=== PATIENT | male | born 1945 | race Caucasian/White ===

== ENCOUNTER → 2017-04-14 | Outpatient (CLI) | payer MEDICARE, OTHER ==
[~2017-04-14] MED LIST: APIX2.5T PO; IOHEXOL 240 MG/ML 50ML VIAL. PO ONE; IOHEXOL 300 MG/ML 100ML VIAL. IV ONE; LISI2.5T PO
--- NOTE | 2017-04-14 11:30 | KCIC ---
Examination: CT pelvis with IV contrast HISTORY: History of left groin pain for years, history of testicular surgery COMPARISON: 03/25/2016 Technique : Axial CT images of the pelvis performed with oral and IV contrast. Coronal and sagittal reformats were performed Exposure: One or more of the following individualized dose reduction techniques were utilized for this examination: 1. Automated exposure control 2. Adjustment of the mA and/or kV according to patient size 3. Use of iterative reconstruction technique FINDINGS: Few sigmoid colon diverticulosis identified. Urinary bladder is mildly distended and mildly enlarged prostate gland. There is stranding of fat identified in the left lower quadrant abdomen extending into the pelvis similar to prior exam could be prior surgical changes or fat infarct. Small fat-containing right inguinal hernia. Moderate degenerative changes lower lumbar spine. IMPRESSION: 1. Stranding of fat identified in the left lower quadrant of the abdomen similar to prior exam likely fat infarct or prior surgical change. 2. Small fat-containing right inguinal hernia. 3. Mild enlarged prostate gland. Electronically signed by: Nigel Norman MD (04/14/2017 11:27 AM)
== END | disposition home or self-care (01) ==
LOC: KCIC CT 09:09
PROVIDERS: ATTEND Internal Medicine
DX: K40.90 Unilateral inguinal hernia, without obstruction or gangrene, not specified as recurrent (principal); N40.0 Benign prostatic hyperplasia without lower urinary tract symptoms; I10 Essential (primary) hypertension
CPT/HCPCS: 72193; Q9966; Q9967

== ENCOUNTER → 2018-07-02 | Outpatient (CLI) | payer MEDICARE, OTHER ==
[~2018-07-02] MED LIST changes: +GADOBUTROL 10 MMOL/10 ML VIAL IV ONE; -IOHEXOL 240 MG/ML 50ML VIAL. PO ONE; -IOHEXOL 300 MG/ML 100ML VIAL. IV ONE
--- NOTE | 2018-07-02 09:49 | KCIC ---
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 Contrast information: 10 cc Gadavist COMPARISON: None available. FINDINGS: There is grade 1 retrolisthesis of L4 on L5. Rudimentary disc is identified at S1-S2. There is moderate disc height loss at L4-L5 with Modic type II endplate degenerative changes. There is endplate remodeling at this level. There is disc desiccation with disc height loss at L1-L2, L2-L3 and L3-L4. Annular fissures are identified at L3-L4 and L4-L5. Conus medullaris terminates at L1. Distal spinal cord signal intensity is normal in all sequences. The left L2 nerve appears to enhance in the cauda equina. There is no fusiform thickening. Simple appearing cysts are identified in the posterior aspect of the right kidney measuring up to 4.7 cm. Abdominal aorta is normal in caliber as visualized. Visualized portions of the sacrum appear intact. L2-L3: There is a circumferential disc bulge with a left far lateral disc protrusion. There is moderate left and mild right facet arthropathy. There is mild to moderate left and mild right neuroforaminal stenosis. There is mild spinal canal stenosis. L3-L4: There is a circumferential disc bulge with central disc protrusion. There is moderate facet arthropathy. There is moderate bilateral neuroforaminal stenosis. There is mild spinal canal stenosis. L4-L5: There is a circumferential disc bulge with central disc protrusion. There is moderate facet arthropathy ligamentum flavum infolding. There is and mild to moderate bilateral neuroforaminal stenosis. No significant spinal canal stenosis. L5-S1: There is a left central disc extrusion. There is a circumferential disc bulge. There is moderate facet arthropathy. There is severe bilateral neuroforaminal stenosis. There is severe left lateral recess stenosis which may affect left S1 nerve. Left hemilaminectomy changes are identified decompressing the spinal canal. IMPRESSION: Mild to moderate degenerative changes of the lumbar spine, as described in detail above. Findings are relatively similar dating back to November 28, 2016. Enhancement of the left L2 nerve root may reflect radiculitis. Correlate with patient's symptoms. Electronically signed by: Tammy Elliott MD (07/02/2018 9:46 AM) [id number]
== END | disposition home or self-care (01) ==
LOC: KCIC MRI 08:26
PROVIDERS: ATTEND Internal Medicine
DX: M47.896 Other spondylosis, lumbar region (principal); M48.061 Spinal stenosis, lumbar region without neurogenic claudication; M48.07 Spinal stenosis, lumbosacral region; M12.88 Other specific arthropathies, not elsewhere classified, other specified site; M51.26 Other intervertebral disc displacement, lumbar region; I10 Essential (primary) hypertension
CPT/HCPCS: 72158; 82565; A9585

== ENCOUNTER → 2019-01-24 | Outpatient (CLI) | payer MEDICARE, OTHER ==
[~2019-01-24] MED LIST changes: -GADOBUTROL 10 MMOL/10 ML VIAL IV ONE
--- NOTE | 2019-01-24 11:12 | KCIC ---
MRI of the right hip history: Right hip pain. TECHNIQUE: Routine multiplanar sequences are obtained. FINDINGS: No bone destruction or acute fracture. No femoral head osteonecrosis. No significant joint effusion. Mild degenerative changes at the right hip. There is a degenerative tear of the labrum. Right gluteus minimus minimus tendinosis with partial tearing. No high-grade tear. Gluteus medius tendon is intact. Hamstring tendinosis with partial degenerative tear. Iliopsoas tendon insertion intact. Rectus femoris tendon attachment intact. No abnormal soft tissue fluid collection. Large [id number] coronal survey sequence demonstrates no acute finding at the contralateral hip. IMPRESSION: 1. Degenerative tear of the right labrum. 2. Mild degenerative changes at the right hip. 3. Gluteus minimus tendinosis with mild partial tearing. 4. Hamstring tendinosis with partial degenerative tear. 5. Limited left hip visualization demonstrates mild degenerative change and labral degeneration/tearing. Electronically signed by: Rober Barrera MD (01/24/2019 11:09 AM) [id number]
== END | disposition home or self-care (01) ==
LOC: MRI 08:11
PROVIDERS: ATTEND Anesthesiology Pain Medicine
DX: S73.191A Other sprain of right hip, initial encounter (principal); S76.011A Strain of muscle, fascia and tendon of right hip, initial encounter; M16.11 Unilateral primary osteoarthritis, right hip; X58.XXXA Exposure to other specified factors, initial encounter; Y93.89 Activity, other specified; Y92.89 Other specified places as the place of occurrence of the external cause; Y99.8 Other external cause status
CPT/HCPCS: 73721

== ENCOUNTER → 2019-09-04 | Outpatient (CLI) | payer MEDICARE, OTHER ==
--- NOTE | 2019-09-04 15:44 | KCIC ---
Examination: CT UPPR EXTREMTY WO CONTRST LT History: Fracture of the proximal left humerus Comparison/Correlation: Findings: Axial images of the left humerus were obtained. Sagittal and coronal reformatted images were provided. Comminuted transversely oriented left humeral neck fracture is present with significant displacement of fracture fragments. Comminuted, displaced greater and lesser tuberosity fracture fragments are present. Extension of fracture involvement of the articular surface of the femoral head anteriorly is noted. Inferior subluxation of the left humeral head is present. Bony glenoid is unremarkable. Acromioclavicular degenerative hypertrophy is present with undersurface spurring. Undersurface effacement of the subacromial fat is present without definite findings of impingement. Impression: Proximal left humeral fractures with displaced fragments and inferior subluxation of the left humeral head. Electronically signed by: Tyrone Parsons MD (09/04/2019 3:42 PM) [facility]
== END | disposition home or self-care (01) ==
LOC: KCIC CT 14:38
PROVIDERS: ATTEND Physician Assistant Surgical
DX: S42.252A Displaced fracture of greater tuberosity of left humerus, initial encounter for closed fracture (principal); S42.262A Displaced fracture of lesser tuberosity of left humerus, initial encounter for closed fracture; X58.XXXA Exposure to other specified factors, initial encounter; Y93.89 Activity, other specified; Y92.89 Other specified places as the place of occurrence of the external cause; Y99.8 Other external cause status
CPT/HCPCS: 73200

== ENCOUNTER → 2020-10-28 | Outpatient (CLI) | payer MEDICARE, OTHER ==
--- NOTE | 2020-10-28 15:20 | KCIC ---
Examination: MRI of the right hip without contrast HISTORY: History of right hip pain COMPARISON: 01/24/2019 TECHNIQUE: Multiplanar, multisequence MR imaging of the right hip was performed without contrast. Findings: The right femoral head is within the acetabulum. Mild joint space loss right hip joint likely degener ative changes. The attachment of the hamstring tendon to the ischial tuberosity, attachment of the gluteal tendons t o the greater trochanter, attachment of the iliopsoas tendon to the lesser trochanter and the attachm ent of the rectus femoris tendon to the anterior inferior iliac spine grossly appears intact. Small amount of fluid identified in the greater trochanter region likely mild trochanteric bursitis. Superficial fraying of cartilage identified in the right hip joint likely degenerative changes. IMPRESSION: 1. Mild trochanteric bursitis. 2. Moderate degenerative changes right hip joint. Electronically signed by: Nigel Norman MD (10/28/2020 3:18 PM) [id number]
== END ==
LOC: KCIC MRI 10:50
PROVIDERS: ATTEND Orthopaedic Surgery Adult Reconstructive Orthopaedic Surgery
DX: M70.61 Trochanteric bursitis, right hip (principal)
CPT/HCPCS: 73721

== ENCOUNTER → 2020-12-10 | Outpatient (CLI) | payer MEDICARE, OTHER ==
--- NOTE | 2020-12-10 12:28 | KCIC ---
EXAMINATION: MRI RIGHT SHOULDER WITHOUT IV CONTRAST CLINICAL HISTORY: Right shoulder pain and limited range of motion for several months, concern for rot ator cuff tear TECHNIQUE: Multiplanar multisequential images obtained through the shoulder without intravenous contr ast. COMPARISON: None FINDINGS: TENDONS: - Supraspinatus: Near full-thickness tearing involving the full width of the tendon with likely super imposed full thickness fissuring and associated marked tendinosis. - Infraspinatus: Moderate tendinosis without discrete tear definitively visualized. - Subscapularis: Intact. - Teres Minor: Intact. - Biceps Tendon: The long head biceps tendon is intact and appropriately located. MUSCLES: Muscle bulk and signal intensity are within normal limits. LABRUM: Degenerative tearing in the superior labrum and anterior inferior labrum with small anterior superior paralabral cyst. Posterior and inferior labral degeneration without discrete tear. GLENOHUMERAL JOINT: - Joint Fluid: No significant volume of fluid in the glenohumeral joint. - Cartilage: No full-thickness chondral defect. ACROMIOCLAVICULAR JOINT: Marked hypertrophic degenerative changes. BONES/MARROW: No evidence of acute fracture or suspicious marrow replacing process. OTHER: Subacromial/subdeltoid bursal thickening and moderate fluid distention, likely communicating w ith the glenohumeral joint. IMPRESSION: Near full-thickness supraspinatus tendon tear and rotator cuff tendinosis as described. Marked hypertrophic acromioclavicular degenerative changes. Electronically signed by: Patrick Lombardi DO (12/10/2020 12:26 PM) [id number]
== END ==
LOC: KCIC MRI 08:22
PROVIDERS: ATTEND Orthopaedic Surgery
DX: S43.491A Other sprain of right shoulder joint, initial encounter (principal); S46.011A Strain of muscle(s) and tendon(s) of the rotator cuff of right shoulder, initial encounter; M19.011 Primary osteoarthritis, right shoulder; X58.XXXA Exposure to other specified factors, initial encounter; Y93.89 Activity, other specified; Y92.89 Other specified places as the place of occurrence of the external cause; Y99.8 Other external cause status
CPT/HCPCS: 73221